=== PATIENT | male | born 1990 | race Caucasian/White ===

== ENCOUNTER 2024-02-23 15:28 | Emergency (ER) | payer OTHER, SELFPAY ==
[2024-02-23 15:30] VITALS: BMI 34.9
[2024-02-23 15:32] VITALS: BP 148/80
--- NOTE | 2024-02-23 15:35 | ED.GENMED ---
History of Present Illness
<Linh Thomas PA-C - Last Filed: 02/23/24 19:36>
General
Chief Complaint: Fall
Source: patient
Exam Limitations: none
Time Seen by Provider: 02/23/24 15:34
Nursing documentation reviewed up to this point in time: agreed with
History of Present Illness
History of Present Illness:
33-year-old male with past medical history of migraines presents emergency department today with concerns of left-sided head trauma. Patient does have a history of seizures which he says he will occasionally get after withdrawing from
methamphetamines or benzodiazepines. Patient states that the last time he used these drugs were yesterday. Patient states that he was in court today when he started to develop a migraine. Patient states that when he went back to his holding cell
after court, he started to develop a posterior headache as well. He states that he was sitting on the bench and his cellmate started to feel sleepy and he subsequently fell off the bench and hit his head on either the floor cell or the wall. He
does not recall these details. Patient does not remember how he woke up. Patient denies neck pain. Patient denies any other injuries. Patient states that he has been able to walk okay since the fall. Patient denies chest pain, shortness of breath,
fevers, chills, patient states that he not use any illicit drugs today. Patient denies seizure-like activity.
Review of Systems
<Linh Thomas PA-C - Last Filed: 02/23/24 19:36>
Review of Systems
All Other Systems: ROS reviewed and negative except as documented in HPI and ROS
Phy Exam
<Linh Thomas PA-C - Last Filed: 02/23/24 19:36>
Physical Exam
Physical Exam:
General: Patient is well appearing and in no acute distress; non-toxic
Skin: Warm and dry, no rashes or lesions
Head: Normocephalic, scattered abrasions noted to the left anterior scalp, no open lesions. TMJ joints intact bilaterally. No tenderness palpation of the facial bones.
Eyes: Sclera non-icteric. EOMs intact. PERRLA.
Cardiac: Regular rate and rhythm, no murmurs. No tenderness to palpation of the external chest wall.
Peripheral Vascular: No lower extremity swelling or edema.
Pulm: Normal respiratory effort
Abdomen: No abdominal tenderness to palpation.
Neuro: CN II-XII intact, no focal neurologic deficits. Normal finger to nose, heel to martinez testing intact.
Psychiatric: Appropriate mood and affect.
Course
<Linh Thomas PA-C - Last Filed: 02/23/24 19:36>
Orders/Labs/Results
Orders:
Orders
02/23/24 15:47
Electrocardiogram (*1) Urgent
Reason for Study: Syncope
CT Head W/o Iv Contrast Urgent
Comment:
Reason For Exam: left sided headache, dizziness, +LOC, fall
EKG- Treatment ONCE
02/23/24 16:14
Complete Blood Count/With Diff Urgent
Comprehensive Metabolic Panel Urgent
Abnormal Lab Results
02/23/24
16:14
RBC 4.43 L 10^6/uL
(4.70-6.10)
Hct 38.7 L %
(39.0-52.0)
Immature Gran % 0.8 H %
(0-0.5)
Carbon Dioxide 33 H mmol/L
(22-30)
Glucose 100 H mg/dl
(70-99)
02/23/24 16:14
02/23/24 16:14
Vital Signs
Initial and Last Documented VS:
Initial Vital Signs
Temp Pulse Resp BP Pulse Ox
97.9 F 69 16 148/80 99
02/23/24 15:32 02/23/24 15:32 02/23/24 15:32 02/23/24 15:32 02/23/24 15:32
Last Documented Vital Signs
Temp Pulse Resp BP Pulse Ox
97.8 F 66 14 118/76 99
02/23/24 18:25 02/23/24 18:25 02/23/24 18:25 02/23/24 18:25 02/23/24 18:25
<Dave Schmitz, DO - Last Filed: 02/23/24 17:59>
Orders/Labs/Results
Orders:
Orders
02/23/24 15:47
Electrocardiogram (*1) Urgent
Reason for Study: Syncope
CT Head W/o Iv Contrast Urgent
Comment:
Reason For Exam: left sided headache, dizziness, +LOC, fall
EKG- Treatment ONCE
02/23/24 16:14
Complete Blood Count/With Diff Urgent
Comprehensive Metabolic Panel Urgent
Abnormal Lab Results
02/23/24
16:14
RBC 4.43 L 10^6/uL
(4.70-6.10)
Hct 38.7 L %
(39.0-52.0)
Immature Gran % 0.8 H %
(0-0.5)
Carbon Dioxide 33 H mmol/L
(22-30)
Glucose 100 H mg/dl
(70-99)
02/23/24 16:14
02/23/24 16:14
Vital Signs
Initial and Last Documented VS:
Initial Vital Signs
Temp Pulse Resp BP Pulse Ox
97.9 F 69 16 148/80 99
02/23/24 15:32 02/23/24 15:32 02/23/24 15:32 02/23/24 15:32 02/23/24 15:32
Last Documented Vital Signs
Temp Pulse Resp BP Pulse Ox
97.8 F 66 14 118/76 99
02/23/24 18:25 02/23/24 18:25 02/23/24 18:25 02/23/24 18:25 02/23/24 18:25
<Linh Thomas PA-C - Last Filed: 02/23/24 19:36>
MDM/Problems Addressed
Differential Diagnosis Includes:
Differentials include vasovagal syncope, fatigue, withdrawal seizure, migraine
MDM/Problems Addressed:
33-year-old male with past medical history of migraine disorder, substance use disorder presents emergency department today with concerns of headache following head trauma. Patient had a questionable syncopal episode during this time. He was
sitting on the bench in his cell when he stated that he felt sleepy and states that he hit his head. Physical exam, he is well-appearing, he has abrasions to the left side of his scalp, but no tenderness palpation of the facial bones, TMJ joints
intact bilaterally. He has a nonfocal neurologic exam. His heart regular rate and rhythm, no murmurs. CBC and CMP unremarkable, EKG shows normal sinus rhythm with no concerning ischemic changes. CT head was done which was negative for any acute
intracranial normalities. Patient states that this migraine he has had today 'like migraines he has had in the past. On reevaluation, patient's headache has resolved without intervention. Patient has no questions at this time. Patient medically
stable for incarceration
Chronic conditions affecting care:
migraines
Acute Exacerbation and/or Progression of Chronic Illness:
n/a
<Linh Thomas PA-C - Last Filed: 02/23/24 19:36>
*Pulse Oximetry
Patient hypoxic: no
*Critical Care Note
Total Time (30-74mins, 75-104mins- exclusive of procedures): Not Applicable
Data Reviewed
Review of Other/Old Records Reveals: Records (No previous ER physician documentation to review) and Discharge Summary (no discharge summary to review )
Source: patient and records
Prescriptions/Medications Considered But Not Given:
n/a
Further Testing Considered But Not Given:
n/a
<Linh Thomas PA-C - Last Filed: 02/23/24 19:36>
Patient Management
Escalation/DeEscalation of care consider admission/obs:
Admit not indicated, case reviewed with my attending
ED Attending Note
<Linh Thomas PA-C - Last Filed: 02/23/24 19:36>
-
Portions of this chart may have been created with voice recognition software.� Occasional wrong word or��sound alike� substitutions may have occurred due to the inherent limitations of voice recognition software.
<Dave Schmitz DO - Last Filed: 02/23/24 17:59>
ED Attending Note
Patient seen and examined by attending physician: Yes
I performed the substantive portion of visit, reviewed & personally made and approve the management plan that is documented in note by myself or SUKI.: Yes
ED Attending Note:
I have seen and evaluated the patient with a [id number] encounter. I have spoken to the advance practicer provider and involved in the medical history, the physical exam, medical decision making.
Evaluation and management service: agree unless noted differently below.
Results interpretation: agree unless noted differently below.
Focused HPI: 33-year-old male presenting in police custody for evaluation of syncopal event. Patient is weak and fatigued and sleepy. It appeared that he fell forward hitting his head.
Physical exam: Sleepy but arousable to verbal stimuli. Gives the appearance of some sort of drug or alcohol intoxication. Small abrasion to anterior left scalp
Medical Decision Making: Workup negative including blood work and CT head. Patient is well-appearing nontoxic. He wakes up easily to verbal stimuli then goes back to sleep. I question with the patient whether or not he took any sort of illegal
substances. Patient declines but will be under close supervision with police back at the [facility]
Discharge Plan
Departure
Patient Disposition: Home (Routine Discharge)
Date of Disposition: 02/23/24
Time of Disposition: 17:54
Patient with high blood pressure during this ER visit?: Yes
Condition: Good
Discharge Problem:
Headache
Instructions: Head Injury in Adults (DC), BLOOD PRESSURE
Referrals:
NONE,* [Family Provider] -
Activity Restrictions/Additional Instructions:
Please return to the emergency department should you experience persistent headache, intractable nausea/vomiting, numbness or tingling, seizure like activity, chest pain, shortness of breath, or any other signs or symptoms concerning to you.
Patient is medically stable for incarceration.
Interventions
Interventions:
*Risk Screen - Suicide Last Done: 02/23/24 15:44
*General Assessment Last Done: 02/23/24 15:34
*Neglect/Abuse Screening Last Done: 02/23/24 15:44
ED- Fall Risk Assessment Last Done: 02/23/24 18:25
*ED COVID-19 Vaccine History Last Done: 02/23/24 15:34
*Nursing Disposition Last Done: 02/23/24 18:25
ED-Musculoskeletal Assessment Last Done: 02/23/24 15:41
ED- Neurological Assessment Last Done: 02/23/24 15:41
ED-Skin Assessment Last Done: 02/23/24 15:40
Discharge Date and Time
Discharge Date/Time: 02/23/24 18:29
Print Language: ROMANSH
[2024-02-23 16:00] VITALS: BP 135/73
[2024-02-23 16:23] LABS: % Basophils 0.6 % (0-2); % Eosinophils 4.5 % (0-6); % Immature Granulocytes 0.8 % (0-0.5); % Lymphocytes 22.6 % (20.5-51.1); % Monocytes 8.8 % (1.7-9.3); % Neutrophils 62.7 % (42.2-75.2); Absolute Eosinophils 0.2 10^3/uL (0-0.7); Absolute Lymphocytes 1.2 10^3/uL (1.2-3.4); Absolute Monocytes 0.5 10^3/uL (0.1-0.6); Absolute Neutrophils 3.2 10^3/uL (1.4-6.5); Hematocrit 38.7 % (39.0-52.0); Hemoglobin 13.1 g/dL (13.0-18.0); Mean Corp Hgb Conc. 33.9 g/dL (33.0-37.0); Mean Corpuscular Hgb 29.6 pg (27.0-31.0); Mean Corpuscular Volume 87.4 fL (80.0-94.0); Nucleated Red Blood Cells % 0 % (-); Platelet Count 188 10^3/uL (130-400); Red Blood Cell Count 4.43 10^6/uL (4.70-6.10); Red Cell Dist. Width 13.2 % (11.5-14.5); White Blood Cell Count 5.1 10^3/uL (4.8-10.8)
[2024-02-23 16:37] LABS: ALT (SGPT) 34 U/L (0-50); AST (SGOT) 36 U/L (17-59); Albumin 3.9 g/dl (3.5-5.0); Alkaline Phosphatase 63 U/L (38-126); Blood Urea Nitrogen 19 mg/dl (9-20); Calcium 8.8 mg/dl (8.4-10.2); Carbon Dioxide 33 mmol/L (22-30); Chloride 100 mmol/L (98-107); Estimated Creatinine Clearance > 125 ml/min; Glucose 100 mg/dl (70-99); Potassium 3.9 mmol/L (3.5-5.1); Sodium 141 mmol/L (135-145); Total Bilirubin 0.3 mg/dl (0.2-1.3); Total Protein 6.9 g/dl (6.3-8.2); eGFR > 60.00
[2024-02-23 18:25] VITALS: BP 118/76
== END 2024-02-23 18:29 | disposition home or self-care (01) ==
LOC: EMR 15:28
PROVIDERS: Physician Assistant; EMERGENCY PHYSICIAN Student in an Organized Health Care Education/Training Program
DX: R51.9 Headache, unspecified (principal)
CPT/HCPCS: 99283; 70450; 80053; 85025; 93005